=== PATIENT | female | born 1980 | race Caucasian/White ===

== ENCOUNTER 2017-03-04 19:15 | Emergency (ER) | payer OTHER ==
[~2017-03-04] VITALS: Ht 162.6 cm; Wt 79.6 kg
[2017-03-04 19:15] VITALS: TEMP 36.5; Ht 162.6 cm; Wt 79.6 kg
[2017-03-04] MEDS ORDERED: VNTHFA/IN INH (19:39)
[2017-03-04] MEDS ORDERED: RAMI5CAP PO (19:39)
[2017-03-04] MEDS ORDERED: ATOR-22 PO (19:39)
[2017-03-04 19:46] LABS: BASO % 0.1 %; BASO ABS # 0.01 K/uL (0-0.2); COMPLETE YES; HEMATOCRIT 40.3 % (37-47); IG% 0.2 %; LYMPH % 23.7 %; MEAN CELL VOLUME 80.6 fL (80-100); MEAN CORPUSCULAR HEMOGLOBIN 26.6 pg (25-34); MEAN PLATELET VOLUME 12.1 fL (7.4-10.4); MONO % 7.7 %; NEUT % 66.3 %; PLATELET COUNT 244 K/uL (130-400); WHITE BLOOD COUNT 12.23 K/uL (4.8-10.8)
--- NOTE | 2017-03-04 19:56 | DIAGNOSTIC IMAGING REPORT ---
CHEST ONE VIEW PORTABLE CLINICAL HISTORY: CHEST PAIN pain COMPARISON STUDY: No previous studies for comparison. FINDINGS: The bones soft tissues and hemidiaphragms are normal. The cardiomediastinal silhouette is normal. The lungs are clear. The pulmonary vasculature is normal. IMPRESSION: Negative chest. The above report was generated using voice recognition software. It may contain grammatical, syntax or spelling errors. Electronically signed by: Brett Prado M.D. 03/04/2017 7:55 PM Dictated Date/Time: 03/04/2017 7:55 PM
[2017-03-04 20:03] LABS: PARTIAL THROMBOPLASTIN RATIO 1.1; PROTHROMBIN TIME (PATIENT) 10.2 SECONDS (9.0-12.0)
[2017-03-04 20:04] LABS: ALT/SGPT 19 U/L (12-78); AST/SGOT 10 U/L (15-37); BLOOD UREA NITROGEN 12 mg/dl (7-18); BUN/CREATININE RATIO 17.7 (10-20); CALCIUM 8.7 mg/dl (8.5-10.1); CARBON DIOXIDE 22 mmol/L (21-32); CHLORIDE 111 mmol/L (98-107); GLUCOSE 105 mg/dl (70-99); POTASSIUM 3.6 mmol/L (3.5-5.1); SODIUM 143 mmol/L (136-145)
[2017-03-04 20:09] LABS: ALKALINE PHOSPHATASE 109 U/L (45-117)
[2017-03-04 20:22] LABS: PREG INTERNAL NEGATIVE QC NEG CLEAR BACKGROUND; PREG INTERNAL POSITIVE QC POS CONTROL LINE
--- NOTE | 2017-03-04 21:25 | EMERGENCY ROOM VISIT NOTE ---
History Report prepared by Noemi: Deb Cortés Under the Supervision of: Dr. Chris Hill D.O. First contact with patient: 19:16 Chief Complaint: CHEST PAIN Stated Complaint: CHEST PAIN History of Present Illness The patient is a 36 year old female who presents to the Emergency Room with complaints of persistent chest pain starting 0930 this morning. The patient presents to the ED by EMS. She received nitro and aspirin in route. This morning she started having chest pain while she was sitting in her home. She took a nitro which resolved the pain. Around 2 hours later, the pain started again so she took another nitro which resolved the pain. She went to work and the pain came back. Nitro was not able to resolve the chest pain at this time. She states that her current pain feels like the pain she had with her previous heart problems. She took 6-8 nitro today. She also received 1 in route. She is currently not having any pain. The last time she took nitro for chest pain was 2 weeks ago. She has never had to use this much nitro. She denies any pain or swelling in the legs. She is currently having her menstrual period which is normal timing. She had a stress test several weeks ago. She has a LAD stent in place. Her last heart catheterization was 1 year ago which found that her stent is starting to occlude. She states that she has been under increased stress recently as she moves house. She has a family history of heart disease. Her mother passed at age 51 from heart problems. Source of History: patient, EMS Onset: 929 this morning Position: chest Quality: other (pain) Timing: other (persistent) Modifying Factors (Relieving): other (nitro) Note: Pt denies pain/swelling in the legs. Review of Systems See HPI for pertinent positives & negatives. A total of 10 systems reviewed and were otherwise negative. Past Medical & Surgical Surgical Problems: (1) History of placement of stent in LAD coronary artery Family History Heart disease Social History Occupation Status: employed Current/Historical Medications Scheduled Albuterol Hfa (Ventolin Hfa), 2 PUFFS INH Q6H Atorvastatin (Lipitor), 20 MG PO HS Ramipril (Ramipril), PO BID Allergies Coded Allergies: Diphenhydramine (Unverified Allergy, Mild, ., 03/04/17) Physical Exam Vital Signs Date Time Temp Pulse Resp B/P (MAP) Pulse Ox O2 Delivery O2 Flow Rate FiO2 03/04/17 21:28 81 16 121/96 98 03/04/17 20:15 78 17 98 Room Air 03/04/17 20:01 103/83 03/04/17 19:45 82 22 99 03/04/17 19:22 70 03/04/17 19:20 116/74 03/04/17 19:15 99 Room Air 03/04/17 19:15 36.5 66 16 116/74 99 Room Air 03/04/17 19:15 Room Air 03/04/17 19:15 Room Air Physical Exam GENERAL: Patient is awake, alert, and in no acute distress. Patient is resting comfortably and showing no signs of anxiety EYES: The conjunctivae are clear. The pupils are round and reactive. EARS, NOSE, MOUTH AND THROAT: The nose is without any evidence of any deformity. Mucous membranes are moist tongue is midline NECK: The neck is nontender and supple. RESPIRATORY: Normal respiratory effort is noted there is no evidence of wheezing rhonchi or rales CARDIOVASCULAR: Regular rate and rhythm noted there no murmurs rubs or gallops normal S1 normal S2 GASTROINTESTINAL: The abdomen is soft. Bowel sounds are present in all quadrants. Abdomen is nontender MUSCULOSKELETAL/EXTREMITIES: There is no evidence of gross deformity full range of motion is noted in the hips and shoulders SKIN: There is no obvious evidence of any rash. There are no petechiae, pallor or cyanosis noted. NEUROLOGIC: Patient is awake alert and oriented x3 Medical Decision & Procedures ER Provider Diagnostic Interpretation: X-ray results as stated below per interpretation by me and the radiologist. CHEST ONE VIEW PORTABLE CLINICAL HISTORY: CHEST PAIN pain COMPARISON STUDY: No previous studies for comparison. FINDINGS: The bones soft tissues and hemidiaphragms are normal. The cardiomediastinal silhouette is normal. The lungs are clear. The pulmonary vasculature is normal. IMPRESSION: Negative chest. The above report was generated using voice recognition software. It may contain grammatical, syntax or spelling errors. Electronically signed by: Brett Prado M.D. 03/04/2017 7:55 PM Dictated Date/Time: 03/04/2017 7:55 PM Laboratory Results 03/04/17 19:30 Red Blood Count 5.00, Mean Corpuscular Volume 80.6, Mean Corpuscular Hemoglobin 26.6, Mean Corpuscular Hemoglobin Concent 33.0, Mean Platelet Volume 12.1, Neutrophils (%) (Auto) 66.3, Lymphocytes (%) (Auto) 23.7, Monocytes (%) (Auto) 7.7, Eosinophils (%) (Auto) 2.0, Basophils (%) (Auto) 0.1, Neutrophils # (Auto) 8.11, Lymphocytes # (Auto) 2.90, Monocytes # (Auto) 0.94, Eosinophils # (Auto) 0.25, Basophils # (Auto) 0.01 03/04/17 19:30 Test 03/04/17 19:30 White Blood Count 12.23 K/uL (4.8-10.8) Red Blood Count 5.00 M/uL (4.2-5.4) Hemoglobin 13.3 g/dL (12.0-16.0) Hematocrit 40.3 % (37-47) Mean Corpuscular Volume 80.6 fL (80-100) Mean Corpuscular Hemoglobin 26.6 pg (25-34) Mean Corpuscular Hemoglobin Concent 33.0 g/dl (32-36) Platelet Count 244 K/uL (130-400) Mean Platelet Volume 12.1 fL (7.4-10.4) Neutrophils (%) (Auto) 66.3 % Lymphocytes (%) (Auto) 23.7 % Monocytes (%) (Auto) 7.7 % Eosinophils (%) (Auto) 2.0 % Basophils (%) (Auto) 0.1 % Neutrophils # (Auto) 8.11 K/uL (1.4-6.5) Lymphocytes # (Auto) 2.90 K/uL (1.2-3.4) Monocytes # (Auto) 0.94 K/uL (0.11-0.59) Eosinophils # (Auto) 0.25 K/uL (0-0.5) Basophils # (Auto) 0.01 K/uL (0-0.2) RDW Standard Deviation 43.6 fL (36.4-46.3) RDW Coefficient of Variation 15.0 % (11.5-14.5) Immature Granulocyte % (Auto) 0.2 % Immature Granulocyte # (Auto) 0.02 K/uL (0.00-0.02) Prothrombin Time 10.2 SECONDS (9.0-12.0) Prothromb Time International Ratio 1.0 (0.9-1.1) Activated Partial Thromboplast Time 27.3 SECONDS (21.0-31.0) Partial Thromboplastin Ratio 1.1 Anion Gap 10.0 mmol/L (3-11) Est Creatinine Clear Calc Drug Dose 111.3 ml/min Estimated GFR () 127.4 Estimated GFR (Non- 109.9 BUN/Creatinine Ratio 17.7 (10-20) Calcium Level 8.7 mg/dl (8.5-10.1) Total Bilirubin 0.2 mg/dl (0.2-1) Direct Bilirubin < 0.1 mg/dl (0-0.2) Aspartate Amino Transf (AST/SGOT) 10 U/L (15-37) Alanine Aminotransferase (ALT/SGPT) 19 U/L (12-78) Alkaline Phosphatase 109 U/L (45-117) Troponin I < 0.015 ng/ml (0-0.045) Total Protein 7.3 gm/dl (6.4-8.2) Albumin 3.6 gm/dl (3.4-5.0) Lipase 170 U/L (73-393) Human Chorionic Gonadotropin, Qual NEG (NEG) Laboratory results per my review. ECG Indication: chest pain Rate (beats per minute): 71 Rhythm: normal sinus Findings: T-wave inversion (Anterior), no ectopy, other (no acute ST segment abnormalities) Comparison ECG Date: no prior available ED Course 1915: The patient was evaluated in room B2. A complete history and physical examination were performed. 2044: I discussed the patient's case with Dr. Ross, [facility] hospitalist. The patient will be evaluated for further management. 2046: I reevaluated the patient. She is resting comfortably. I discussed the results and treatment plan with her. I recommended that she be evaluated by the hospitalist for further management. She declined and requested to leave. I discussed the risks of leaving against medical advice and she stated that she would still like to leave. She is leaving against medical advice. Medical Decision Prior records/ancillary studies reviewed. Triage Nursing notes reviewed. Additional history obtained from EMS. The patient's history was concerning for chest pain. Differential diagnosis: Etiologies such as cardiac ischemia, aortic dissection, pulmonary embolism, pneumonia, pneumothorax, musculoskeletal, infections, pericarditis, myocarditis , esophageal rupture, gastrointestinal, as well as others were entertained. The patient is a 36-year-old female who presented to the emergency department for an evaluation of chest pain. The patient has a history of angina and has coronary artery disease. She had a stent placed in the past and has a strong family history for coronary artery disease. She is already taking nitroglycerin as well as long-acting nitrates. She is pain-free at this time and took multiple doses of her sublingual nitroglycerin. She was also treated with aspirin prior to arrival. I discussed the patient's laboratory radiographic studies with her. I discussed her case with the on-call [facility] hospitalist as well as the on-call [facility] housing manager. The patient did not wish to stay in the hospital because she would not be a candidate for full admission and would rather not be an observation status. She signed out against medical advisor. She was encouraged to rest and avoid any strenuous activity. She was also encouraged to continue all medications as prescribed including her nitrates. She was also encouraged to follow-up with her housing manager tomorrow for further evaluation but return to the emergency department immediately if symptoms change worsen or the need arises. Medication Reconcilliation Current Medication List: was personally reviewed by me Blood Pressure Screening Patient's blood pressure: Normal blood pressure Blood pressure disposition: Did not require urgent referral Consults Time Called: 2034 Consulting Physician: Dr. Ross, [facility] Hospitalist Returned Call: 2044 I discussed the patient's case with him. The patient will be evaluated for further management. Impression Primary Impression: Angina pectoris Additional Impression: Chest pain Scribe Attestation The scribe's documentation has been prepared under my direction and personally reviewed by me in its entirety. I confirm that the note above accurately reflects all work, treatment, procedures, and medical decision making performed by me. Departure Information Dispostion Against Medical Advice Referrals Don Lopez D.O. Forms HOME CARE DOCUMENTATION FORM, IMPORTANT VISIT INFORMATION Patient Instructions Angina, [facility] Additional Instructions Call your housing manager in the morning to schedule a follow-up appointment. Rest and avoid any strenuous activity. Return to the emergency Department immediately if symptoms change worsen or the need arises. Continue all medications as prescribed. Problem Qualifiers Additional Impression: Chest pain Chest pain type: unspecified Qualified Codes: R07.9 - Chest pain, unspecified
[2017-03-04 21:28] VITALS: BP 121/96; PULSE 81; O2SAT 98
== END 2017-03-04 21:29 | disposition left against medical advice (07) ==
LOC: EDBD 19:15 → C.EDB 19:16
DX: I20.9 Angina pectoris, unspecified (principal); R07.9 Chest pain, unspecified; Z79.899 Other long term (current) drug therapy; Z83.3 Family history of diabetes mellitus

== ENCOUNTER 2024-10-26 19:47 | Inpatient (IN) ==
--- OUTSIDE RECORDS SUMMARY | 2024-10-26 19:53 | External Medical Summary | Summary of Care ---
Author Name Unknown Organization [facility] Address [address] [place] [address] Phone [phone] Care Team Providers Care Web Merchant Name Role Phone Unavailable Primary Care Provider Unavailabl e Reason for Visit * Reason Onset Date Comments Precert Approved 04/23/2024 Ozempic Encounter Details Date Type Department Care Team (Late st Contact Info) Description 04/23/2024 Telephone Nutrition & Weight Management, [facility] [address] [place] [id number] Rema Enciso PA-C [address] [place] [id number] Precert Approved (Ozempic) Allergies Active Allergy Reactions Criticality Noted Date Comments Diphenhydramine Hives Medium 09/09/2014 documented as of this encounter (statuses as of 05/01/2024) Medications Medication Sig Dispensed Refills Start Date End Date Status Metoprolol Succinate ER 25 MG Oral Tablet Extended Release 24 Hour (toPROL XL)Indications:Eder nary artery disease involving [place] heart without angina pectoris, unspecified vessel or lesion type Take 0.5 Tablets by mouth in the morning. 45 Tablet 3 12/25/2022 Active Aspirin EC 81 MG Oral Tablet Delayed ReleaseIndications: Coronary artery disease involving [place] heart without angina pectoris, unspecified vessel or lesion type Take 1 Tablet by mouth in the morning. 100 Tablet 3 12/25/2022 Active Atorvastatin Calcium 10 MG Oral Tablet (Lipitor)Indication s:Coronary artery disease involving [place] heart without angina pectoris, unspecified vessel or lesion type Take 1 Tablet by mouth in the morning. 90 Tablet 3 12/25/2022 Active Loratadine 10 MG Oral Tablet (Claritin)Indicatio ns:Seasonal allergies Take 1 Tablet by mouth every night at bedtime. 90 Tablet 3 12/25/2022 Active Fluticasone Propionate 50 MCG/ACT Nasal Suspension (Flonase)Indication s:Seasonal allergies Administer 1 [place] into each nostril in the morning and 1 [place] in the evening. 54 mL 3 01/19/2023 Active Pseudoephedrine HCl 30 MG Oral Tablet (Sudafed)Indication s:Seasonal allergies Take 1 Tablet by mouth 4 times a day as needed for Congestion. 30 Tablet 1 04/02/2023 Active FLUoxetine HCl 20 MG Oral Capsule (PROzac) Take 1 Capsule by mouth in the morning. 08/27/2023 Active Pen [place] 32G X 4 MM Use as directed. Use as directed with Ozempic. 2 Each 1 11/23/2023 Active Ozempic (0.25 or 0.5 MG/DOSE) 2 MG/3ML Solution Pen-injector (Semaglutide(0.25 or 0.5MG/DOS)) INJECT 0.5 MG UNDER THE SKIN ONCE A WEEK. 2 mL 2 02/05/2024 Active documented as of this encounter (statuses as of 05/01/2024) Active Problems Problem Noted Date Diagnosed Date Prediabetes 01/15/2023 Overview: Per Prediabetes protocol Coronary artery disease invo lving [place] heart without angina pectoris 12/25/2022 S/P angioplasty with stent 12/25/2022 Bipolar 1 disorder 12/25/2022 Seasonal allergies 12/25/2022 Current mild episode of sol r depressive disorder without prior episode 12/25/2022 Anxiety 12/25/2022 documented as of this encounter (statuses as of 05/01/2024) Social History Tobacco Use Types Packs/Day Years Used Date Smoking Tobacco: Every Day Cigarettes Passive Smoke Exposure: Current Smokeless Tobacco: Never Alcohol Use Standard Drinks/Week Comments Not Currently 0 (1 standard drink = 0.6 oz pur e alcohol) Utilities Answer Date Recorded Do you have trouble paying y our heating, water, or electric bill? (Adult - for ages 18 years and over) Not on file 01/22/2024 Is your family able to pay t he heat, water, or electric bill? (Household - for ages 0-17 years) Not on file 01/22/2024 Does your family have access to good internet? (Household - for ages 0-17 years) Not on file 01/22/2024 Social Connections Answer Date Recorded How often do you feel lonely or isolated from those around you? (Adult - for ages 18 years and over) Not on file 01/22/2024 Sex and Gender Information Value Date Recorded Sex Assigned at Female 08/15/2023 7:32 AM EST Gender Identity Female 08/15/2023 7:32 AM EST Sexual Orientation Straight 08/15/2023 7: 32 AM EST Job Start Date Occupation Industry Not on file Not on file Not on file documented as of this encounter Miscellaneous Notes * Telephone Encounter - Cali Ross LPN - 05/01/2024 8:38 AM EDT Left pt a detailed message, letter sent * Telephone Encounter - Cali Ross LPN - 04/30/2024 9:38 AM EDT Left message for patient to return call. * Telephone Encounter - Cali Ross LPN - 04/25/2024 10:59 AM EDT Left message for patient to return call. * Telephone Encounter - Cali Ross LPN - 04/25/2024 10:57 AM EDT ype Date User Summary Attachment Precert 04/25/2024 9:47 AM Allie Arnold OSA Please see scanned fax from insurance under theMedia Tab. - Note: Please see scanned fax from insurance under the Media Tab. Approved/Denied: approved Drug Name and Formulation: Ozempic (0.25 or 0.5 MG/DOSE) 2 MG/3ML Solution Pen- injector (Semaglutide(0.25 or 0.5MG/DOS)) How Prescribed(directions/sig): Qty and Day Supply: weekly 10/31 Did you receive insurance information from outside the chart? No, received insurance information within the chart Valid auth start date: 04/24/2024 Valid auth end date: 10/21/2024 Rx Insurance Info: [facility] [place] Reference #: Allie Arnold Medication Roof Mechanic III [facility] ([facility]) P: [phone] F: [phone] 04/25/24,9:47 AM . Type Date User Summary Attachment Precert 04/24/2024 7:07 AM Allie Arnold OSA [facility] Authorization Submission - Note: [facility] Authorization Submission Submission Information: Medication: Ozempic (0.25 or 0.5 MG/DOSE) 2 MG/3ML Solution Pen-injector (Semaglutide(0.25 or 0.5MG/DOS)) Portal used: PROMPTPA Insurance: [facility] Authorization #/Mckinnon: [id number] * Telephone Encounter - Sheela Omalley LPN - 04/23/2024 3:54 PM EDT Please Start prior authorization for Ozempic (0.25 or 0.5 MG/DOSE) 2 MG/3ML Solution Pen-injector (Semaglutide(0.25 or 0.5MG/DOS)) Diagnosis Class 1 obesity due to excess calories in adult, unspecified BMI, unspecified whether serious comorbidity present [E66.09] Patient qualifies for Weight loss medication due to BMI >30 or BMI >27 with obesity related comorbidity BMI Readings from Last 2 Encounters: 01/31/24 29.52 kg/m 08/28/23 33.99 kg/m Wt Readings from Last 2 Encounters: 01/31/24 78 kg (172 lb) 08/28/23 89.8 kg (198 lb) Rema Enciso PA-C documented in this encounter Plan of Treatment Health Maintenance Due Date Last Done Comments DISCUSS TOBACCO CESSATION (REFER TO SMARTSET #3291) 1978 Pneumococcal Vaccine: Pediatrics (0 to 5 Years) and At-Risk Patients (6 to 64 Years) (1 of 2 - PCV) 1984 Depression Monitoring 1990 HIV Screening 1993 Hepatitis C Screening 1996 Hepatitis B Vaccine (1 of 3 - 19+ 3-dose series) 1997 Pap Smear 1999 Cervical Cancer Screening 2008 HPV/Co-Test 2008 Mammogram 2018 Cologuard 2023 Colonoscopy 2023 Colorectal Cancer Screening 2023 Fecal Occult Blood Test 2023 Sigmoidoscopy 2023 HbA1c 12/26/2023 12/25/2022 COVID-19 Vaccine (1 - 2023-2 5 season) 2024 Influenza Vaccine (FLU shot) (#1) 2024 06/25/2020, 08/28/2019 DTap/Tdap Vaccines (2 - Td o r Tdap) 06/26/2032 06/26/2022 HPV (Gardasil) Vaccine Aged Out No lo nger eligible based on patient's age to complete this topic MENINGOCOCCAL (MENACTRA/MENVEO) Aged Out No longer eligible b ased on patient's age to complete this topic documented as of this encounter Medical Devices Not on filedocumented as of this encounter
--- OUTSIDE RECORDS SUMMARY | 2024-10-26 19:53 | External Medical Summary | Summary of Care ---
Author Name Unknown Organization [facility] Address [address] [place] [address] Phone [phone] Care Team Providers Care Delphi Programmer Name Role Phone Unavailable Primary Care Provider Unavailabl e Reason for Visit * Reason Onset Date Comments Precert Approved 04/23/2024 Ozempic Encounter Details Date Type Department Care Team (Late st Contact Info) Description 04/23/2024 Telephone Nutrition & Weight Management, [facility] [address] [place] [address] Rema Enciso PA-C [address] [place] [id number] Precert Approved (Ozempic) Allergies Active Allergy Reactions Criticality Noted Date Comments Diphenhydramine Hives Medium 09/09/2014 documented as of this encounter (statuses as of 04/30/2024) Medications Medication Sig Dispensed Refills Start Date End Date Status Metoprolol Succinate ER 25 MG Oral Tablet Extended Release 24 Hour (toPROL XL)Indications:Eder nary artery disease involving [place] heart without angina pectoris, unspecified vessel or lesion type Take 0.5 Tablets by mouth in the morning. 45 Tablet 3 12/25/2022 Active Aspirin EC 81 MG Oral Tablet Delayed ReleaseIndications: Coronary artery disease involving [place] heart without angina pectoris, unspecified vessel or lesion type Take 1 Tablet by mouth in the morning. 100 Tablet 3 12/25/2022 Active Atorvastatin Calcium 10 MG Oral Tablet (Lipitor)Indication s:Coronary artery disease involving [place] heart without angina pectoris, unspecified vessel or lesion type Take 1 Tablet by mouth in the morning. 90 Tablet 3 12/25/2022 Active Loratadine 10 MG Oral Tablet (Claritin)Indicatio ns:Seasonal allergies Take 1 Tablet by mouth every night at bedtime. 90 Tablet 3 12/25/2022 Active Fluticasone Propionate 50 MCG/ACT Nasal Suspension (Flonase)Indication s:Seasonal allergies Administer 1 [place] into each nostril in the morning and 1 [place] in the evening. 54 mL 3 01/19/2023 Active Pseudoephedrine HCl 30 MG Oral Tablet (Sudafed)Indication s:Seasonal allergies Take 1 Tablet by mouth 4 times a day as needed for Congestion. 30 Tablet 1 04/02/2023 Active FLUoxetine HCl 20 MG Oral Capsule (PROzac) Take 1 Capsule by mouth in the morning. 08/27/2023 Active Pen [place] 32G X 4 MM Use as directed. Use as directed with Ozempic. 2 Each 1 11/23/2023 Active Ozempic (0.25 or 0.5 MG/DOSE) 2 MG/3ML Solution Pen-injector (Semaglutide(0.25 or 0.5MG/DOS)) INJECT 0.5 MG UNDER THE SKIN ONCE A WEEK. 2 mL 2 02/05/2024 Active documented as of this encounter (statuses as of 04/30/2024) Active Problems Problem Noted Date Diagnosed Date Prediabetes 01/15/2023 Overview: Per Prediabetes protocol Coronary artery disease invo lving [place] heart without angina pectoris 12/25/2022 S/P angioplasty with stent 12/25/2022 Bipolar 1 disorder 12/25/2022 Seasonal allergies 12/25/2022 Current mild episode of sol r depressive disorder without prior episode 12/25/2022 Anxiety 12/25/2022 documented as of this encounter (statuses as of 04/30/2024) Social History Tobacco Use Types Packs/Day Years [...] auth end date: 10/21/2024 Rx Insurance Info: [facility] [place] Reference #: Allie Arnold Medication Acls Nurse III [facility] ([facility]) P: [phone] F: [phone] 04/25/24,9:47 AM . Type Date User Summary Attachment Precert 04/24/2024 7:07 AM Allie Arnold OSA [facility] Authorization Submission - Note: [facility] Authorization Submission Submission Information: Medication: Ozempic (0.25 or 0.5 MG/DOSE) 2 MG/3ML Solution Pen-injector (Semaglutide(0.25 or 0.5MG/DOS)) Portal used: PROMPTPA Insurance: [facility] Authorization #/Mckinnon: [id number] * Telephone Encounter - Sheela Omalley LPN [...] Comments DISCUSS TOBACCO CESSATION (REFER TO SMARTSET #[id number]) 1978 Pneumococcal Vaccine: Pediatrics (0 to 5 [...]
--- OUTSIDE RECORDS SUMMARY | 2024-10-26 19:53 | External Medical Summary | Summary of Care ---
Author Name Unknown Organization [facility] Address [address] [place] [address] Phone [phone] Care Team Providers Care Project Product Manager Name Role Phone Unavailable Primary Care Provider Unavailabl e Reason for Visit * Reason Comments eRx-Medication Refill Encounter Details Date Type Department Care Team (Late st Contact Info) Description 05/20/2024 Refill Nutrition & Weight Management, [facility] [address] [place] [id number] Rema Enciso PA-C [address] [place] [address] Allergies Active Allergy Reactions Criticality Noted Date Comments Diphenhydramine Hives Medium 09/09/2014 documented as of this encounter (statuses as of 06/16/2024) Medications Metoprolol Succinate ER 25 MG Oral Tablet Extended Release 24 Hour (toPROL XL)Indications:C oronary artery disease involving zuni heart without angina pectoris, unspecified vessel or lesion type Take 0.5 Tablets by mouth in the morning. 45 Tablet 3 3 Active Aspirin EC 81 MG Oral Tablet Delayed ReleaseIndicatio ns:Coronary artery disease involving zuni heart without angina pectoris, unspecified vessel or lesion type Take 1 Tablet by mouth in the morning. 100 Tablet 3 3 Active Atorvastatin Calcium 10 MG Oral Tablet (Lipitor)Indicat ions:Coronary artery disease involving zuni heart without angina pectoris, unspecified vessel or lesion type Take 1 Tablet by mouth in the morning. 90 Tablet 3 3 Active Loratadine 10 MG Oral Tablet (Claritin)Indica tions:Seasonal allergies Take 1 Tablet by mouth every night at bedtime. 90 Tablet 3 3 Active Fluticasone Propionate 50 MCG/ACT Nasal Suspension (Flonase)Indicat ions:Seasonal allergies Administer 1 Caruthers into each nostril in the morning and 1 Caruthers in the evening. 54 mL 3 3 Active Pseudoephedrine HCl 30 MG Oral Tablet (Sudafed)Indicat ions:Seasonal allergies Take 1 Tablet by mouth 4 times a day as needed for Congestion. 30 Tablet 1 3 Active FLUoxetine HCl 20 MG Oral Capsule (PROzac) Take 1 Capsule by mouth in the morning. 4 Active Pen Poplar 32G X 4 MM Use as directed. Use as directed with Ozempic. 2 Each 1 11/29/2023 10:29 AM EDT 4 Active Ozempic (0.25 or 0.5 MG/DOSE) 2 MG/3ML Solution Pen-injector (Semaglutide(0.2 5 or 0.5MG/DOS)) INJECT 0.5 MG UNDER THE SKIN ONCE A WEEK. 2 mL 2 4 Active documented as of this encounter (statuses as of 06/16/2024) Active Problems Problem Noted Date Diagnosed Date Prediabetes 01/15/2023 Overview: Per Prediabetes protocol Coronary artery disease invo lving zuni heart without angina pectoris 12/25/2022 S/P angioplasty with stent 12/25/2022 Bipolar 1 disorder 12/25/2022 Seasonal allergies 12/25/2022 Current mild episode of sol r depressive disorder without prior episode 12/25/2022 Anxiety 12/25/2022 documented as of this encounter (statuses as of 06/16/2024) Social History Tobacco Use Types Packs/Day Years [...] years and over) Not on file 01/22/2024 Comments Unknown Sex and Gender Information Value Date Recorded Sex Assigned at Female 08/15/2023 7:32 AM EST Legal Sex Female 8:55 AM EDT Gender Identity Female 08/15/2023 7:32 AM EST Sexual Orientation Straight 08/15/2023 7: 32 AM EST documented as of this encounter Miscellaneous Notes * Telephone Encounter - Jahaira Carlisle facilities painter - 06/16/2024 1:33 PM EST PT returning call to check on PA for ozempic. Transferred to scheduling, as per message below. Thank you, Jahaira Carlisle Parcel Wrapper [facility] 06/16/2024,1:34 PM * Telephone Encounter - Rema Enciso PA-C - 06/12/2024 12:31 PM EST Refused Prescriptions: Disp Refills Ozempic (0.25 or 0.5 MG/DOSE) 2 MG/3ML Nancy* 2 Sig: INJECT 0.5 MG UNDER THE SKIN ONCE A WEEK. Refused By: CALI BERMUDEZ Reason for Refusal: Refill Not Appropriate * Telephone Encounter - Cali Bermudez LPN - 06/11/2024 1:44 PM EST Refused Prescriptions: Disp Refills Ozempic (0.25 or 0.5 MG/DOSE) 2 MG/3ML Nancy* 2 Sig: INJECT 0.5 MG UNDER THE SKIN ONCE A WEEK. Refused By: CALI BERMUDEZ Reason for Refusal: Refill Not Appropriate * Telephone Encounter - Cali Bermudez LPN - 06/11/2024 1:30 PM EST Left message for patient to return call. Letter sent * Telephone Encounter - Cali Bermudez LPN - 06/02/2024 10:57 AM EDT Left message for patient to return call. * Telephone Encounter - Cali Bermudez LPN - 05/22/2024 9:33 AM EDT Left message for patient to return call. * Telephone Encounter - Cali Bermudez LPN - 05/20/2024 12:05 PM EDT Did you pend patient's preferred pharmacy and medication before forwarding?yes Pharmacy: [id number] [id number] [facility] Pending Prescriptions: Disp Refills Ozempic (0.25 or 0.5 MG/DOSE) 2 MG/3ML So* 2 Sig: INJECT 0.5 MG UNDER THE SKIN ONCE A WEEK. Last Visit: 06/20/2023 (in office), 01/10/2024 (telemedicine) Next Visit: Visit date not found If no future appointments scheduled, and last appointment is greater than a year ago, please schedule patient for a follow-up appointment Last date the medication was ordered: 02/05/24 Is this request for a controlled substance?No Urine Drug Screen:No results found for this or any previous visit. Patient Phone Numbers Labs: Lab Results Component Value Date/Time CREAT 0.7 12/25/2022 02:45 PM POTASSIUM 4.4 12/25/2022 02:45 PM TSH 1.31 12/25/2022 02:45 PM LDL 131 (H) 12/25/2022 02:45 PM ALT 13 12/25/2022 02:45 PM HGBA1C 6.2 (H) 12/25/2022 02:45 PM documented in this encounter Plan of Treatment Upcoming Encounters Date Type Department Care Team (Late st Contact Info) Description 06/19/2024 2:00 PM EST Telemedicine Nutrition & Weight Management, [place] [address] [place] [address] Leigh Ann Dasilva, [address] [place] [address] Health Maintenance Due Date Last Done Comments DISCUSS TOBACCO CESSATION (REFER TO SMARTSET #[id number]) 1980 Pneumococcal Vaccine: Pediatrics (0 to 5 [...]
--- NOTE | 2024-10-26 20:35 | Emergency Department Note ---
Impression & Plan Overdose on Tylenol, Drug abuse, Suicide gesture, Urinary tract infection ED Provider Note NAME: IWONA SAXENA AGE: 44 SEX: F : 1980 ARRIVES VIA: Ambulance INFORMANT: Patient, ED PROVIDER(S): Chris Hill DO CHIEF COMPLAINT: Overdose HPI: The patient is a 44-year-old female who presented to the emergency department by ambulance after an overdose. The patient states that she was having suicidal ideation. She got into the garbage at a local store. She has been very vague and will not tell me exactly what she took but according to the prehospital personnel she had generic NyQuil which was a mix of DayQuil as well as NyQuil. It was generic but had all the usual medications in it. The patient may have taken between 30 and 60 tablets. I was told by prehospital that this occurred around 4 PM but the patient himself states that it happened around 6 PM. The patient had multiple episodes of nausea vomiting after this. At this time she continues to admit to suicidal ideation. ROS: See above HPI for pertinent positives & negatives. A total of 10 systems reviewed and were otherwise negative. PAST MEDICAL HISTORY: See Below PAST SURGICAL HISTORY: See Below FAMILY HISTORY: See Below SOCIAL HISTORY: See Below HOME MEDICATIONS: See Below ALLERGIES: See Below VITALS: See Below PHYSICAL EXAMINATION: GENERAL: The patient is awake and alert. She is anxious and guarded. EYES: The conjunctivae are clear. The pupils are round and reactive. EARS, NOSE, MOUTH AND THROAT: The nose is without any evidence of any deformity. NECK: The neck is nontender and supple. RESPIRATORY: Normal respiratory effort is noted there is no evidence of wheezing rhonchi or rales CARDIOVASCULAR: Regular rate and rhythm noted there no murmurs rubs or gallops normal S1 normal S2. GASTROINTESTINAL: The abdomen is soft. Abdomen is nontender. MUSCULOSKELETAL/EXTREMITIES: There is no evidence of gross deformity full range of motion is noted in the hips and shoulders. SKIN: There is no obvious evidence of any rash. There are no petechiae, pallor or cyanosis noted. NEUROLOGIC: Patient is awake alert and oriented x3 strength is symmetric patellar reflexes are 2+ bilaterally PSYCH: The patient makes poor eye contact with the evaluation. She is anxious and guarded. She is currently admitting to suicidal ideation. MEDICAL DECISION MAKING: The patient is a 44-year-old female who presented to the emergency department by ambulance for an evaluation of depression with suicidal gesturing. The patient took multiple doses of NyQuil daytime and nighttime formulations. We do not know exactly what she took and she is being very vague about the timeframe but we think it was between 4 PM and 6 PM. The patient had episodes of nausea vomiting. The patient was treated with N-acetylcysteine in the emergency department. She was also treated with IV antibiotics for presumed urinary tract infection. I discussed the patient's laboratory and radiographic studies with her. I consulted with the Poison Control [facility] about the patient's condition. Ultimately they felt that she would be a good candidate for N-acetylcysteine. [facility] They have agreed to evaluate the patient in the emergency department for further management and disposition. Triage Nursing notes reviewed. Prior medical records reviewed Vital Signs: reviewed and remarkable for elevated blood pressure and tachycardia. Differential diagnosis: Mood disorder, infection, hypoglycemia, electrolyte abnormalities, cardiac sources, intracerebral event, toxicologic, trauma, neurologic, as well as other pathologies. ER treatment provided: See below Diagnostics interpreted by me: ECG: EKG was obtained in the emergency department. My interpretation is normal sinus rhythm at 98 bpm. There was no ectopy. There was no acute ST segment abnormalities noted. QTc was 485 ms. QRS duration was 80 ms. Cardiac Monitoring: An order was placed for continuous cardiac monitoring. The monitor shows a rate of 104 bpm with sinus tachycardia. Laboratory studies: As stated above and show below. Imaging studies: See below. Radiographic imaging was reviewed by myself Consultation(s): I discussed this case with Dr. Tony who is on[facility]. I discussed this case with the Poison Control Center. ED COURSE: Procedures: none Critical Care: I have personally spent greater than 45 minutes of critical care time in the direct management of this patient. This includes bedside care, interpretation of diagnostic studies, and testing, discussion with consultants, patient, and family members, and other required patient management activities. This 45 minutes is in excess of all separately billable procedures. Past Med/Surg History Problem List (Updated 10/26/24 @ 22:10 by Chris Hill DO) Urinary tract infection (Acute) Suicide gesture (Acute) Drug abuse (Acute) Overdose on Tylenol (Acute) Vascular disease, peripheral KING (dyspnea on exertion) Coronary artery disease Medical History Tobacco use GERD (gastroesophageal reflux disease) Asthma Anxiety Depression Migraine headache Fatigue Leg pain, bilateral Carotid bruit Vitamin D deficiency Urinary tract infection Insomnia Neck pain Sleep disorder Cephalgia Dyspnea on exertion Somatic dysfunction of cervical region Cholelithiasis Abdominal pain, right upper quadrant Subclavian artery stenosis Arm pain, left Decreased radial pulse Liver cyst Upper back pain Weight gain Hyperlipidemia Thyromegaly Somatic dysfunction of thoracic region Obese Hypokalemia Lower back pain Somatic dysfunction of lumbar region Hyperglycemia Somatic dysfunction of rib Colitis Abdominal pain Occult blood in stools Leukocytosis Sore throat Cough Muscle ache Diarrhea Surgical History History of cardiac catheterization H/O section History of tubal ligation Family History Family/Other Coronary heart disease Asthma Allergies Diabetes Hypertension Migraine Social History Smoking Status: Current every day smoker Tobacco Type: Cigarettes packs per day: 0.5; Do You Dip or Chew Tobacco: No; Hx Alcohol Use: No Hx Substance Use: No Preferred Language: Bangladeshi Environmental Technical Officer Required: No Beliefs That Will Affect Care: None marital status: / Current Living Situation: Spouse and Family current occupational status: unemployed How many Children do You have: 5 Feels Safe at Home: No caffeine: Yes (5 cups of coffee per day) Seatbelt Use: always Assistive Devices: None Allergies Allergies Allergy/AdvReac Type Severity Reaction Status Date / Time diphenhydramine Allergy Mild . Verified 07/27/20 10:42 Home Meds Home Medications Medication Instructions Recorded Confirmed albuterol sulfate 90 mcg/actuation 2 puff inhalation Q4H PRN 07/12/20 07/27/20 aerosol inhaler (Ventolin HFA) Shortness Of Breath aspirin 81 mg tablet,delayed 81 mg PO DAILY 07/12/20 07/27/20 release atorvastatin 20 mg tablet 20 mg PO DAILY 07/12/20 07/27/20 carvedilol 3.125 mg tablet 3.125 mg PO BID 07/12/20 07/27/20 famotidine 40 mg tablet 40 mg PO DAILY 07/12/20 07/27/20 nitroglycerin 0.4 mg sublingual 0.4 mg sublingual Q5M PRN Chest 07/12/20 07/27/20 tablet Pain ramipril 2.5 mg capsule 2.5 mg PO BID 07/12/20 07/27/20 Previous Rx's Medication Instructions Recorded clopidogrel 75 mg tablet (Plavix) 75 mg PO DAILY #90 tabs 07/21/20 isosorbide mononitrate 30 mg 30 mg PO DAILY #90 tabs 07/27/20 tablet,extended release 24 hr Results & Data (ED) Vital Signs Vital Signs - 24 hr 10/26/24 19:37 10/26/24 19:37 10/26/24 19:37 Temperature 36.5 C 36.5 C Temperature Source Oral Oral Pulse Rate 104 H Pulse Rate [Right Brachial] 104 H Pulse Rhythm Regular Pulse Rhythm [Right Brachial] Regular Pulse Strength Normal Pulse Strength [Right Brachial] Normal Respiratory Rate 19 19 Respiratory Effort / Characteristics Non-Labored Non-Labored Respiratory Depth Normal Normal Respiratory Pattern Regular Regular Blood Pressure 178/91 H Blood Pressure [Right Arm] 178/91 H Blood Pressure Mean 120 Blood Pressure Mean [Right Arm] 120 Blood Pressure Position Lying Blood Pressure Position [Right Arm] Lying Pulse Oximetry 100 100 Oxygen Delivery Method Room Air Room Air Room Air Sepsis Recent Fever Within 48 Hours No Sepsis New/Unexplained Change in Mental Status N/A Sepsis Action Taken by Nursing No Action Required 10/26/24 20:01 Temperature Temperature Source Pulse Rate Pulse Rate [Right Brachial] Pulse Rhythm Pulse Rhythm [Right Brachial] Pulse Strength Pulse Strength [Right Brachial] Respiratory Rate Respiratory Effort / Characteristics Respiratory Depth Respiratory Pattern Blood Pressure Blood Pressure [Right Arm] Blood Pressure Mean Blood Pressure Mean [Right Arm] Blood Pressure Position Blood Pressure Position [Right Arm] Pulse Oximetry 100 Oxygen Delivery Method Room Air Sepsis Recent Fever Within 48 Hours Sepsis New/Unexplained Change in Mental Status Sepsis Action Taken by Jail Medications Current Medication List: was personally reviewed by me Laboratory Data Attestation: I reviewed the patient's lab results. 10/26/24 20:10 10/26/24 20:10 Lab Results 10/26/24 10/26/24 Range/Units 20:00 20:10 WBC 17.21 H (4.8-10.8) K/ul RBC 5.53 H (4.20-5.40) M/uL Hgb 12.7 (12.0-16.0) g/dl Hct 40.8 (37.0-47.0) % MCV 73.8 L (80.0-100.0) fL MCH 23.0 L (25.0-34.0) pg MCHC 31.1 L (32.0-36.0) g/dL RDW Std Deviation 43.5 (36.4-46.3) fL RDW Coeff of Donna 16.4 H (11.5-14.5) % Plt Count 475 H (130-400) K/uL MPV 11.3 (9.4-12.4) fL Immature Gran % (Auto) 0.5 % Neut % (Auto) 77.4 % Lymph % (Auto) 15.3 % [place] % (Auto) 5.6 % Eos % (Auto) 0.9 % Baso % (Auto) 0.3 % Neut # (Auto) 13.32 H (1.40-6.50) K/uL Lymph # (Auto) 2.63 (1.20-3.40) K/uL [place] # (Auto) 0.97 H (0.11-0.59) K/uL Eos # (Auto) 0.15 (0.00-0.50) K/uL Baso # (Auto) 0.06 (0.00-0.20) K/uL Immature Gran # (Auto) 0.08 (0.01-0.20) K/uL PT 10.3 (9.0-12.0) Seconds INR 0.9 (0.9-1.1) APTT 24 (21-31) Seconds PTT Ratio 0.9 Sodium 140 (136-145) mmol/L Potassium 3.8 (3.5-5.1) mmol/L Chloride 106 (98-107) mmol/L Carbon Dioxide 26 (21-32) mmol/L Anion Gap 8 (3-11) BUN 8 (6-23) mg/dl Creatinine 0.81 (0.6-1.2) mg/dl Est Cr Clr Drug Dosing 85.0 ml/min eGFR 90.61 BUN/Creatinine Ratio 9.9 L (10-20) Glucose 135 H (70-99(Fasting)) mg/dl Calcium 9.3 (8.6-10.3) mg/dl Magnesium 1.9 (1.7-2.4) mg/dl Total Bilirubin 0.3 (0.2-1.0) mg/dl AST 15 (13-39) U/L ALT 12 (7-52) U/L Alkaline Phosphatase 121 H (34-104) U/L Total Creatine Kinase 81 (26-192) U/L Troponin I High Sens 5.5 (0-14) pg/ml Total Protein 8.1 (6.0-8.3) gm/dl Albumin 4.3 (3.4-5.0) gm/dl Globulin 3.8 (2.5-4.0) gm/dl Albumin/Globulin Ratio 1.1 (0.9-2) Lipase 24 (11-82) U/L HCG, Qual Negative (Negative) Urine Color Yellow Urine Appearance Cloudy A (Clear) Urine pH 5.0 (4.5-7.5) Ur Specific [place] > 1.045 H (1.000-1.030) Urine Protein 2+ H (Negative) Urine Glucose (UA) Negative (Negative) Urine Ketones Trace H (Negative) Urine Blood 3+ H (Negative) Urine Nitrite Positive A (Negative) Urine Bilirubin Negative (Negative) Urine Urobilinogen Negative (Negative) Ur Leukocyte Esterase Trace H (Negative) Urine WBC (Auto) 11-20 H (0-5) /hpf Urine RBC (Auto) >20 H (0-2) /hpf U Hyaline Cast (Auto) 3-5 H (0-2) /lpf U Epithel Cells (Auto) 6-10 H (0-2) /hpf Urine Bacteria (Auto) 4+ H (None Seen) Salicylates < 3.0 L (3.0-30) mg/dl Urine Opiates Screen Pos H (Neg) Ur Methadone, Qual Neg (Neg) Urine Fentanyl Screen Pos H (Neg) Acetaminophen 94 H (10-30) ug/ml Urine Barbiturates Neg (Neg) Ur Phencyclidine (PCP) Neg (Neg) U Amphetamin/Meth Scrn Pos H (Neg) MDMA (Ecstasy) Screen Pos H (Neg) U Benzodiazepines Scrn Neg (Neg) Ur Cocaine Metabolite Neg (Neg) U Marijuana (THC) Screen Pos H (Neg) Ethyl Alcohol mg/dL < 10.0 (<10.0) mg/dl SARS-CoV-2, RNA, NAAT NEGATIVE (NEGATIVE) Imaging Data Attestation: I personally reviewed and interpreted this imaging study as follows: My Impression: 1 view chest x-ray was obtained in the emergency department. My interpretation is no free air or definite infiltrate, final report pending Discharge Plan Visit Data Chief Complaint: Overdose (Intentional) Stated Complaint: ALTERED, OVERDOSE, ED Provider: Chris Hill Discharge Problem: Overdose on Tylenol, Drug abuse, Suicide gesture, Urinary tract infection Patient Disposition: Being Evaluated by Hospitalist Forms Stand Alone Forms: My [facility], Suicide Prevention Resources Prescriptions Prescriptions: No Action isosorbide mononitrate 30 mg tablet extended release 24 hr 30 mg PO DAILY Qty: 90 3RF nitroglycerin 0.4 mg tablet, sublingual 0.4 mg sublingual Q5M PRN (Reason: Chest Pain) Rx Instructions: do not exceed 3 doses per episode famotidine 40 mg tablet 40 mg PO DAILY aspirin 81 mg tablet,delayed release (DR/EC) 81 mg PO DAILY albuterol sulfate [Ventolin HFA] 90 mcg/actuation HFA aerosol inhaler 2 puff inhalation Q4H PRN (Reason: Shortness Of Breath) ramipril 2.5 mg capsule 2.5 mg PO BID carvedilol 3.125 mg tablet 3.125 mg PO BID Rx Instructions: must administer with a meal/food atorvastatin 20 mg tablet 20 mg PO DAILY clopidogrel [Plavix] 75 mg tablet 75 mg PO DAILY Qty: 90 3RF Referrals Referrals: Don Lopez DO [Primary Care Provider] -
[2024-10-26 20:49] LABS: Pregnancy Test, Serum Negative (Negative)
[2024-10-26 20:51] LABS: Albumin Globulin Ratio 1.1 (0.9-2); Albumin Level 4.3 gm/dl (3.4-5.0); BUN Creatinine Ratio 9.9 (10-20); Bilirubin,Total 0.3 mg/dl (0.2-1.0); Calcium 9.3 mg/dl (8.6-10.3); Globulin 3.8 gm/dl (2.5-4.0); Magnesium 1.9 mg/dl (1.7-2.4); Potassium 3.8 mmol/L (3.5-5.1); Total Protein 8.1 gm/dl (6.0-8.3)
[2024-10-26 20:55] LABS: Appearance Urine Cloudy (Clear); Bacteria Urine Automated 4+ (None Seen); Bilirubin Urine Negative (Negative); Blood Urine 3+ (Negative); Color Urine Yellow; Glucose Urine UA Negative (Negative); Ketones Urine Trace (Negative); Leukocyte Esterase Urine Trace (Negative); Nitrite Urine Positive (Negative); Protein Urine 2+ (Negative); RBC Urine Automated >20 /hpf (0-2); Specific Gravity Urine > 1.045 (1.000-1.030); Urobilinogen Urine Negative (Negative)
[2024-10-26 20:57] LABS: Troponin I High Sensitivity 5.5 pg/ml (0-14)
[2024-10-26 21:05] LABS: Acetaminophen 94 ug/ml (10-30); Salicylate < 3.0 mg/dl (3.0-30)
[2024-10-26 21:07] LABS: Amphetamines+Metham, Urine Pos (Neg); Barbiturates, Urine Neg (Neg); Benzodiazepine, Urine Neg (Neg); Cocaine, Urine Neg (Neg); Fentanyl, Urine Pos (Neg); MDMA (Ecstacy), Urine Pos (Neg); Marijuana, Urine Pos (Neg); Methadone, Urine Neg (Neg); Opiate, Urine Pos (Neg); Phencyclidine, Urine Neg (Neg)
[2024-10-26 21:10] LABS: Basophils # (auto) 0.06 K/uL (0.00-0.20); Basophils % (auto) 0.3 %; Eosinophils # (auto) 0.15 K/uL (0.00-0.50); Eosinophils % (auto) 0.9 %; Hematocrit (blood only) 40.8 % (37.0-47.0); Hemoglobin 12.7 g/dl (12.0-16.0); Immature Granulocytes # (auto) 0.08 K/uL (0.01-0.20); Immature Granulocytes % (auto) 0.5 %; Lymphocytes # (auto) 2.63 K/uL (1.20-3.40); Lymphocytes % (auto) 15.3 %; Mean Corpuscular Hgb Conc 31.1 g/dL (32.0-36.0); Mean Corpuscular Volume 73.8 fL (80.0-100.0); Mean Platelet Volume 11.3 fL (9.4-12.4); Monocytes # (auto) 0.97 K/uL (0.11-0.59); Monocytes % (auto) 5.6 %; Neutrophils # (auto) 13.32 K/uL (1.40-6.50); Neutrophils % (auto) 77.4 %; Platelet Count 475 K/uL (130-400); RDW Coefficient of Variation 16.4 % (11.5-14.5); RDW Standard Deviation 43.5 fL (36.4-46.3); Red Blood Count 5.53 M/uL (4.20-5.40); White Blood Count 17.21 K/ul (4.8-10.8)
[2024-10-26 21:19] LABS: INR 0.9 (0.9-1.1); Partial Thromboplastin Ratio 0.9; Partial Thromboplastin Time 24 Seconds (21-31); Prothrombin Time 10.3 Seconds (9.0-12.0)
[2024-10-26] MEDS: cefTRIAXone SODIUM 2,000 MG/50 ML BAG IV STA (22:16)
--- NOTE | 2024-10-26 22:26 | History & Physical Report ---
Date of Service October 26, 2024 Assessment & Plan (1) Suicide gesture: (2) Urinary tract infection: (3) Coronary artery disease: (4) Anxiety: Plan 44-year-old female with history of anxiety/depression, coronary artery disease presenting with intentional overdose. Patient ingested an undisclosed amount of NyQuil/DayQuil tablets around 1700 this evening. Denies coingestions or intake of alcohol. On physical exam patient is tachycardic and hypertensive. She is somnolent but arousable and able to answer questions and follow commands. Labs are significant for leukocytosis and elevated platelet count as well as microcytosis with normal hemoglobin and hematocrit Mild elevation of alkaline phosphatase = 121, UA suggestive of infection, urinary toxicology screen positive for opiates, fentanyl, amphetamine/methamphetamines, ecstasy and marijuana as well as an elevated acetaminophen level of 94. #Suicidal gestureintentional overdose on NyQuil and DayQuil. These medications typically contain acetaminophen, dextromethorphan as well as doxylamine (antihistamine) and phenylephrine. Admit to PCU for continuous cardiac monitoring Maintain suicide precautions, one-to-one observation Bladder scan and straight cath as needed, monitor for urinary retention given anticholinergic elements of her overdose Continue N-acetylcysteine per protocol Lactated Ringer's at 100 mL/h x 2 L Repeat CBC, LFTs and Tylenol level in the morning Psychiatry consult in the morning #Urinary tract infectionUA suggestive of infection. Patient is afebrile. Elevated heart rate likely secondary to overdose rather than sepsis. Ceftriaxone 1 g IV daily Continue gentle IV fluids #Coronary artery diseasepatient with history of coronary artery disease. She had LAD stent in 2014 in the setting of an acute [place]. She also had stenting of her ostial/proximal right PDA due to progressive dyspnea on exertion. Patient followed with cardiology in the past. Last visit 07/26/2020. At that time she was on dual antiplatelet therapy due to recent stent placement as well as beta-aneesh, KARL inhibitor, statin and Imdur for angina. Patient reports that she is not taking any of her medications. Patient denies chest pain. EKG is nonischemic. Troponin Will resume aspirin 81 mg p.o. daily, atorvastatin 20 mg p.o. daily, carvedilol 3.125 mg p.o. twice daily and ramipril 2.5 mg p.o. twice daily #Anxietypatient may benefit from SSRI management, further evaluation for possib le bipolar disorder as self-reported. Psychiatry consultation appreciated F/E/N -lactated Ringer's at 100 mL/h x 2 L, electrolytes within normal limits, heart healthy diet with safe tray as tolerated Prophylaxisencourage ambulation, low risk for DVT Codefull per discussion with patient at time of admission Dispoadmit to PCU History of Present Illness Chief Complaint: Intentional overdose Primary Care Provider: Don Lopez DO Wanda Marroquin Is a 44-year-old female with history of anxiety/depression, self-reported bipolar disorder, coronary artery disease with stent in place, GERD and ongoing tobacco use presenting with intentional overdose. Patient is able to answer questions appropriately but does provide limited history at this time. She reports that she had a fight with her boyfriend today and is just "fed up with stuff". She took "lots of boxes" of NyQuil and DayQuil. The ingestion took place at around 1700 hrs. EMS was called. Estimated that patient took anywhere from 30-60 DayQuil/NyQuil tablets. She denies coingestion with other agents or alcohol. She comments that she she has severe anxiety as well as bipolar disorder. She is currently not taking any medications for these conditions. She does not follow with psychiatry. She has taken buspirone in the past but reports she has never been on an SSRI (Citalopram however is in her past medical records). She has had intentional overdose in the past. Reports a 2 to 3 years ago she took an overdose of prescription medications. Patient denies chest pain, shortness of breath, abdominal pain, nausea, vomiting, diarrhea or constipation. Denies fever at this time. In the ER she is afebrile, tachycardic and hypertensive (heart rate = 104, BP = 178/91), adequate oxygenation on room air. Poison control was contacted. Recommended the patient began on N- acetylcysteine protocol ER Course: Ceftriaxone 2 g IV N-acetylcysteine Allergies Allergy/AdvReac Type Severity Reaction Status Date / Time diphenhydramine Allergy Mild . Verified 07/27/20 10:42 Past Med/Surg History Problem List Urinary tract infection (Acute) Suicide gesture (Acute) Drug abuse (Acute) Overdose on Tylenol (Acute) Vascular disease, peripheral KING (dyspnea on exertion) Coronary artery disease Medical History Tobacco use GERD (gastroesophageal reflux disease) Asthma Anxiety Depression Migraine headache Fatigue Leg pain, bilateral Carotid bruit Vitamin D deficiency Urinary tract infection Insomnia Neck pain Sleep disorder Cephalgia Dyspnea on exertion Somatic dysfunction of cervical region Cholelithiasis Abdominal pain, right upper quadrant Subclavian artery stenosis Arm pain, left Decreased radial pulse Liver cyst Upper back pain Weight gain Hyperlipidemia Thyromegaly Somatic dysfunction of thoracic region Obese Hypokalemia Lower back pain Somatic dysfunction of lumbar region Hyperglycemia Somatic dysfunction of rib Colitis Abdominal pain Occult blood in stools Leukocytosis Sore throat Cough Muscle ache Diarrhea Surgical History History of cardiac catheterization H/O section History of tubal ligation Family History Family/Other Coronary heart disease Asthma Allergies Diabetes Hypertension Migraine Social History Smoking Status: Current every day smoker Tobacco Type: Cigarettes packs per day: 0.5; Do You Dip or Chew Tobacco: No; Hx Alcohol Use: No Hx Substance Use: No Preferred Language: Korean Bible Worker Required: No Beliefs That Will Affect Care: None marital status: / Current Living Situation: Spouse and Family current occupational status: unemployed How many Children do You have: 5 Feels Safe at Home: No caffeine: Yes (5 cups of coffee per day) Seatbelt Use: always Assistive Devices: None Review of Systems Review of Systems: All systems reviewed & are unremarkable except as noted in HPI & below Physical Exam Physical Exam: General: patient resting comfortably, NAD, non-toxic in appearance, AA&O x 4 Skin: warm, dry, intact, no rashes or lesions HEENT: NC/AT, PERRL, EOMI, anicteric sclera, conjunctiva without injection, external ear normal to inspection and nontender, nares patent, dry mucus membranes, dentition intact, no oropharyngeal lesions, neck supple, trachea midline, no LAD, no thyromegaly, no JVD Heart: +S1/S2, regular, tachycardic, no m/r/g Lungs: equal air entry bilaterally, no rales/rhonchi/wheezes Abd: +BS, soft, NT/ND, no masses/organomegaly/ascites Ext: warm, 2+ pulses in UE/LE bilaterally, no clubbing/cyanosis or edema Neuro: nonfocal, patient AA&O x 4, speech intact, no facial droop, moving all extremities on command with equal strength 5/5 Results & Data Results & Data Vital Signs (Past 12 Hours) Vital Signs Temp Pulse Pulse Resp BP BP Pulse Ox 10/26/24 20:01 100 10/26/24 19:37 36.5 C 104 H 19 178 H 100 10/26/24 19:37 10/26/24 19:37 36.5 C 104 H 19 178 H 100 O2 Del Method 10/26/24 20:01 Room Air 10/26/24 19:37 Room Air 10/26/24 19:37 Room Air 10/26/24 19:37 Room Air Laboratory Results Laboratory Results WBC 17.21 K/ul (4.8-10.8) H 10/26/24 20:10 RBC 5.53 M/uL (4.20-5.40) H 10/26/24 20:10 Hgb 12.7 g/dl (12.0-16.0) 10/26/24 20:10 Hct 40.8 % (37.0-47.0) 10/26/24 20:10 MCV 73.8 fL (80.0-100.0) L 10/26/24 20:10 MCH 23.0 pg (25.0-34.0) L 10/26/24 20:10 MCHC 31.1 g/dL (32.0-36.0) L 10/26/24 20:10 RDW Std Deviation 43.5 fL (36.4-46.3) 10/26/24 20:10 RDW Coeff of Donna 16.4 % (11.5-14.5) H 10/26/24 20:10 Plt Count 475 K/uL (130-400) H 10/26/24 20:10 MPV 11.3 fL (9.4-12.4) 10/26/24 20:10 Immature Gran % (Auto) 0.5 % 10/26/24 20:10 Neut % (Auto) 77.4 % 10/26/24 20:10 Lymph % (Auto) 15.3 % 10/26/24 20:10 [place] % (Auto) 5.6 % 10/26/24 20:10 Eos % (Auto) 0.9 % 10/26/24 20:10 Baso % (Auto) 0.3 % 10/26/24 20:10 Neut # (Auto) 13.32 K/uL (1.40-6.50) H 10/26/24 20:10 Lymph # (Auto) 2.63 K/uL (1.20-3.40) 10/26/24 20:10 [place] # (Auto) 0.97 K/uL (0.11-0.59) H 10/26/24 20:10 Eos # (Auto) 0.15 K/uL (0.00-0.50) 10/26/24 20:10 Baso # (Auto) 0.06 K/uL (0.00-0.20) 10/26/24 20:10 Immature Gran # (Auto) 0.08 K/uL (0.01-0.20) 10/26/24 20:10 PT 10.3 Seconds (9.0-12.0) 10/26/24 20:10 INR 0.9 (0.9-1.1) 10/26/24 20:10 APTT 24 Seconds (21-31) 10/26/24 20:10 PTT Ratio 0.9 10/26/24 20:10 Sodium 140 mmol/L (136-145) 10/26/24 20:10 Potassium 3.8 mmol/L (3.5-5.1) 10/26/24 20:10 Chloride 106 mmol/L (98-107) 10/26/24 20:10 Carbon Dioxide 26 mmol/L (21-32) 10/26/24 20:10 Anion Gap 8 (3-11) 10/26/24 20:10 BUN 8 mg/dl (6-23) 10/26/24 20:10 Creatinine 0.81 mg/dl (0.6-1.2) 10/26/24 20:10 Est Cr Clr Drug Dosing 85.0 ml/min 10/26/24 20:10 eGFR 90.61 10/26/24 20:10 BUN/Creatinine Ratio 9.9 (10-20) L 10/26/24 20:10 Glucose 135 mg/dl (70-99(Fasting)) H 10/26/24 20:10 Calcium 9.3 mg/dl (8.6-10.3) 10/26/24 20:10 Magnesium 1.9 mg/dl (1.7-2.4) 10/26/24 20:10 Total Bilirubin 0.3 mg/dl (0.2-1.0) 10/26/24 20:10 AST 15 U/L (13-39) 10/26/24 20:10 ALT 12 U/L (7-52) 10/26/24 20:10 Alkaline Phosphatase 121 U/L (34-104) H 10/26/24 20:10 Total Creatine Kinase 81 U/L (26-192) 10/26/24 20:10 Troponin I High Sens 5.5 pg/ml (0-14) 10/26/24 20:10 Total Protein 8.1 gm/dl (6.0-8.3) 10/26/24 20:10 Albumin 4.3 gm/dl (3.4-5.0) 10/26/24 20:10 Globulin 3.8 gm/dl (2.5-4.0) 10/26/24 20:10 Albumin/Globulin Ratio 1.1 (0.9-2) 10/26/24 20:10 Lipase 24 U/L (11-82) 10/26/24 20:10 HCG, Qual Negative (Negative) 10/26/24 20:10 Urine Color Yellow 10/26/24 20:00 Urine Appearance Cloudy (Clear) A 10/26/24 20:00 Urine pH 5.0 (4.5-7.5) 10/26/24 20:00 Ur Specific [place] > 1.045 (1.000-1.030) H 10/26/24 20:00 Urine Protein 2+ (Negative) H 10/26/24 20:00 Urine Glucose (UA) Negative (Negative) 10/26/24 20:00 Urine Ketones Trace (Negative) H 10/26/24 20:00 Urine Blood 3+ (Negative) H 03/23/25 20:00 Urine Nitrite Positive (Negative) A 10/26/24 20:00 Urine Bilirubin Negative (Negative) 10/26/24 20:00 Urine Urobilinogen Negative (Negative) 10/26/24 20:00 Ur Leukocyte Esterase Trace (Negative) H 10/26/24 20:00 Urine WBC (Auto) 11-20 /hpf (0-5) H 10/26/24 20:00 Urine RBC (Auto) >20 /hpf (0-2) H 10/26/24 20:00 U Hyaline Cast (Auto) 3-5 /lpf (0-2) H 10/26/24 20:00 U Epithel Cells (Auto) 6-10 /hpf (0-2) H 10/26/24 20:00 Urine Bacteria (Auto) 4+ (None Seen) H 10/26/24 20:00 Salicylates < 3.0 mg/dl (3.0-30) L 10/26/24 20:10 Urine Opiates Screen Pos (Neg) H 10/26/24 20:00 Ur Methadone, Qual Neg (Neg) 10/26/24 20:00 Urine Fentanyl Screen Pos (Neg) H 10/26/24 20:00 Acetaminophen 94 ug/ml (10-30) H 10/26/24 20:10 Urine Barbiturates Neg (Neg) 10/26/24 20:00 Ur Phencyclidine (PCP) Neg (Neg) 10/26/24 20:00 U Amphetamin/Meth Scrn Pos (Neg) H 10/26/24 20:00 MDMA (Ecstasy) Screen Pos (Neg) H 10/26/24 20:00 U Benzodiazepines Scrn Neg (Neg) 10/26/24 20:00 Ur Cocaine Metabolite Neg (Neg) 10/26/24 20:00 U Marijuana (THC) Screen Pos (Neg) H 10/26/24 20:00 Ethyl Alcohol mg/dL < 10.0 mg/dl (<10.0) 10/26/24 20:10 SARS-CoV-2, RNA, NAAT NEGATIVE (NEGATIVE) 10/26/24 20:00 ECG Additional Comments: EKG per my independent interpretation reveals normal sinus rhythm at 90 bpm, MN = 136, QRS = 80, QTc mildly prolonged at 485, no acute ischemic changes, some nonspecific ST changes present in the anterior leads PG Care Time/CCT Total # of Minutes Spent Total Time Spent with Patient: Total time spent is greater than 50% in coordination of care (as documented) at patient's floor/unit and/or counseling patient: Coding Level of Care Code 56062 INT INP/OBS CARE 3/75MIN Diagnoses Suicide gesture X83.8XXA Urinary tract infection N39.0 Coronary artery disease I25.10 Anxiety F41.9
[2024-10-26] MEDS: STAT IV/IM STA (22:44)
[2024-10-26] MEDS: AcetylCYSTEINE IV 21 HR REGIMEN (>40KG) IV STA (22:44)
[2024-10-26] MEDS: DEXTROSE 5% IV ONE (22:51)
[2024-10-26] MEDS: ACETYLCYSTEINE IV ONE (22:51)
[2024-10-26 23:05] LABS: Base Excess VBG 0.7 mEq/L; HCO3 VBG 25 mmol/L; Oxygen Saturation VBG 92.9 %; PCO2 VBG 40 mmHg (38-50); PO2 VBG 63 mmHg; pH VBG 7.41 (7.36-7.41)
--- NOTE | 2024-10-26 23:47 | XRay Report ---
Exam(s): XR CXR 1 VIEW EXAM: XR Chest, 1 View CLINICAL HISTORY: Reason for exam: OD. TECHNIQUE: Frontal view of the chest. COMPARISON: 03/04/2017 FINDINGS: Lungs: Unremarkable. No consolidation. Pleural space: Unremarkable. No pneumothorax. Heart: Unremarkable. No cardiomegaly. Mediastinum: Unremarkable. Normal mediastinal contour. Bones/joints: Unremarkable. No acute fracture. IMPRESSION: No acute cardiopulmonary abnormality. Electronically signed by: Ke Uribe MD 10/26/24 23:46 PM
[2024-10-27] MEDS: LACTATED RINGER'S 1,000 ML IV SCH (00:16)
[2024-10-27] MEDS: NICOTINE 21 MG/24 HR TDSY TD SCH (00:21)
[2024-10-27] MEDS ORDERED: Nursing to Pharmacy Communication STA (02:26)
[2024-10-27 05:01] LABS: Hematocrit (blood only) 35.5 % (37.0-47.0); Hemoglobin 11.1 g/dl (12.0-16.0); Mean Corpuscular Hemoglobin 22.8 pg (25.0-34.0); Mean Corpuscular Hgb Conc 31.3 g/dL (32.0-36.0); Mean Corpuscular Volume 72.9 fL (80.0-100.0); Mean Platelet Volume 10.3 fL (9.4-12.4); Platelet Count 394 K/uL (130-400); RDW Coefficient of Variation 16.3 % (11.5-14.5); RDW Standard Deviation 42.6 fL (36.4-46.3); Red Blood Count 4.87 M/uL (4.20-5.40); White Blood Count 15.41 K/ul (4.8-10.8)
[2024-10-27 05:17] LABS: Albumin Globulin Ratio 1.3 (0.9-2); Albumin Level 3.6 gm/dl (3.4-5.0); BUN Creatinine Ratio 11.5 (10-20); Bilirubin,Total 0.4 mg/dl (0.2-1.0); Calcium 8.2 mg/dl (8.6-10.3); Creatinine Clr Calc Pharmacy 112.8 ml/min; Globulin 2.8 gm/dl (2.5-4.0); Potassium 3.6 mmol/L (3.5-5.1); Total Protein 6.4 gm/dl (6.0-8.3)
[2024-10-27] MEDS: ATORVASTATIN 20 MG TAB PO SCH (08:50)
[2024-10-27] MEDS: ENALAPRIL MALEATE 5 MG TAB PO SCH (08:50)
[2024-10-27] MEDS: carvediloL 3.125 MG TAB PO SCH (08:50)
[2024-10-27] MEDS: ASPIRIN 81 MG ECTAB PO SCH (08:51)
--- NOTE | 2024-10-27 09:43 | Hospitalist Progress Note ---
Date of Service October 27, 2024 Assessment & Plan (1) Suicide gesture: (2) Urinary tract infection: (3) Coronary artery disease: (4) Anxiety: Plan 44-year-old female with history of anxiety/depression, coronary artery disease presenting with intentional overdose. Patient ingested an undisclosed amount of NyQuil/DayQuil tablets around 1700 this evening. Denies coingestions or intake of alcohol. On physical exam patient is tachycardic and hypertensive. She is somnolent but arousable and able to answer questions and follow commands. Labs are significant for leukocytosis and elevated platelet count as well as microcytosis with normal hemoglobin and hematocrit Mild elevation of alkaline phosphatase = 121, UA suggestive of infection, urinary toxicology screen positive for opiates, fentanyl, amphetamine/methamphetamines, ecstasy and marijuana as well as an elevated ac etaminophen level of 94. #Suicidal gestureintentional overdose on NyQuil and DayQuil. These medications typically contain acetaminophen, dextromethorphan as well as doxylamine (antihistamine) and phenylephrine. Maintain suicide precautions, one-to-one observation Bladder scan and straight cath as needed, monitor for urinary retention given anticholinergic elements of her overdose Continue N-acetylcysteine per protocol Lactated Ringer's at 100 mL/h x 2 L Repeat CBC, LFTs in AM Psychiatry consulted, aprec recommendations #Urinary tract infectionUA suggestive of infection; patient asymptomatic. Patient is afebrile. Elevated heart rate likely secondary to overdose rather than sepsis. Abx d/c'd Continue gentle IV fluids #Coronary artery diseasepatient with history of coronary artery disease. She had LAD stent in 2014 in the setting of an acute [place]. She also had stenting of her ostial/proximal right PDA due to progressive dyspnea on exertion. Patient followed with cardiology in the past. Last visit 07/26/2020. At that time she was on dual antiplatelet therapy due to recent stent placement as well as beta- aneesh, KARL inhibitor, statin and Imdur for angina. Patient reports that she is not taking any of her medications. Patient denies chest pain. EKG is nonischemic. Troponin 85, 81 yesterday. Will resume aspirin 81 mg p.o. daily, atorvastatin 20 mg p.o. daily, carvedilol 3.125 mg p.o. twice daily and ramipril 2.5 mg p.o. twice daily #Anxietypatient may benefit from SSRI management, further evaluation for possible bipolar disorder as self-reported. Psychiatry consultation appreciated F/E/N -lactated Ringer's at 100 mL/h x 2 L, electrolytes within normal limits, heart healthy diet with safe tray as tolerated Prophylaxisencourage ambulation, low risk for DVT Codefull per discussion with patient at time of admission Dispoadmit to PCU Admission and Anticipated Discharge Date Admission Date: October 26, 2024 Supervising Physician Co-Signing Physician Notes I personally examined the patient and verified all traylor points of history and exam, discussed case, and agree with decision making with Dr Tavon Torres and Norma Caba MS4 feeling very tired. no real focal complaints vitals noted nad heent nc at mmm fatigued. breathing unlabored no accessory muscles good effort skin no rashes no pallor or icterus neuro no focal deficits polysubstance overdose - supportive care, NAC, time. anticipate inpatient psychiatric stay after OD has recovered/done with NAC given SI. otherwise as above Subjective Patient was seen at bedside. She was sleeping, but awakened to voice. She reported feeling tired. She had no acute complaints. Review of Systems Review of Systems: as per hPI Physical Exam Physical Exam: General: patient resting comfortably, initially sleeping Skin: warm, dry, intact, no rashes or lesions Heart: RRR Lungs: CTAB Abd: soft, NT/ND, no masses/organomegaly Ext: warm, 2+ pulses in UE/LE bilaterally, mild tenderness to palpation in BL ankles Results & Data Results & Data Vital Signs (Past 12 Hours) Vital Signs Temp Pulse Pulse Resp BP BP Pulse Ox 10/27/24 07:57 10/27/24 07:00 88 15 167/108 H 96 10/27/24 06:53 88 10/27/24 06:00 91 H 16 166/91 H 96 10/27/24 05:10 167/92 H 10/27/24 05:10 167/92 H 10/27/24 05:10 167/92 H 10/27/24 05:10 167/92 H 10/27/24 05:10 167/92 H 10/27/24 05:00 80 16 167/92 H 97 10/27/24 04:00 86 16 191/105 H 97 10/27/24 03:00 88 16 186/102 H 96 10/27/24 02:00 92 H 14 172/95 H 97 10/26/24 23:52 36.9 C 95 H 20 156/91 H 97 10/26/24 23:52 10/26/24 23:14 87 10/26/24 23:00 90 18 139/80 93 10/26/24 21:37 96 H 18 139/78 98 Pulse Ox O2 Del Method O2 Del Method 10/27/24 07:57 Room Air 10/27/24 07:00 Room Air 10/27/24 06:53 10/27/24 06:00 Room Air 10/27/24 05:10 10/27/24 05:10 10/27/24 05:10 10/27/24 05:10 10/27/24 05:10 10/27/24 05:00 Room Air 10/27/24 04:00 Room Air 10/27/24 03:00 Room Air 10/27/24 02:00 Room Air 10/26/24 23:52 Room Air 10/26/24 23:52 97 Room Air 10/26/24 23:14 10/26/24 23:00 Room Air 10/26/24 21:37 Room Air Resident Activity Tracking Resident Involvement: Resident Care Provided Care Provided: Adult Hospital Medicine
--- NOTE | 2024-10-27 13:04 | Billing Data ---
Date of Service October 27, 2024 Coding Level of Care Code 86255 SUB INP/OBS CARE MIN
--- NOTE | 2024-10-27 14:16 | Electrocardiogram Report ---
Test Reason : Blood Pressure : */* mmHG Vent. Rate : 98 BPM Atrial Rate : 98 BPM P-R Int : 136 ms QRS Dur : 80 ms QT Int : 380 ms P-R-T Axes : 70 68 68 degrees QTcB Int : 485 ms Normal sinus rhythm Possible Left atrial enlargement Nonspecific ST abnormality Prolonged QT Abnormal ECG When compared with ECG of 04-Mar-2017 19:21, QT has lengthened Confirmed by Chris Kong ([id number]) on 10/27/2024 2:16:24 PM Referred By: REFERRED SELF Confirmed By: Chris Kong
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
[2024-10-27 17:40] LABS: Albumin Level 3.7 gm/dl (3.4-5.0); Bilirubin Direct 0.1 mg/dl (0-0.2); Bilirubin,Total 0.3 mg/dl (0.2-1.0); Total Protein 6.6 gm/dl (6.0-8.3)
[2024-10-27 17:50] LABS: Prothrombin Time 11.1 Seconds (9.0-12.0)
[2024-10-27] MEDS: cefTRIAXone SODIUM 1,000 MG/50 ML BAG IV SCH (19:58)
[2024-10-28 07:19] LABS: Basophils # (auto) 0.04 K/uL (0.00-0.20); Basophils % (auto) 0.3 %; Eosinophils # (auto) 0.35 K/uL (0.00-0.50); Eosinophils % (auto) 2.7 %; Hematocrit (blood only) 37.5 % (37.0-47.0); Hemoglobin 11.6 g/dl (12.0-16.0); Immature Granulocytes # (auto) 0.05 K/uL (0.01-0.20); Immature Granulocytes % (auto) 0.4 %; Lymphocytes # (auto) 4.37 K/uL (1.20-3.40); Lymphocytes % (auto) 33.3 %; Mean Corpuscular Hemoglobin 22.6 pg (25.0-34.0); Mean Corpuscular Hgb Conc 30.9 g/dL (32.0-36.0); Mean Corpuscular Volume 73.1 fL (80.0-100.0); Mean Platelet Volume 11.2 fL (9.4-12.4); Monocytes # (auto) 0.99 K/uL (0.11-0.59); Monocytes % (auto) 7.5 %; Neutrophils # (auto) 7.34 K/uL (1.40-6.50); Neutrophils % (auto) 55.8 %; Platelet Count 412 K/uL (130-400); RDW Coefficient of Variation 16.5 % (11.5-14.5); RDW Standard Deviation 43.3 fL (36.4-46.3); Red Blood Count 5.13 M/uL (4.20-5.40); White Blood Count 13.14 K/ul (4.8-10.8)
[2024-10-28 07:39] VITALS: TEMP 98.4; O2SAT 97
[2024-10-28 07:42] LABS: Albumin Globulin Ratio 1.2 (0.9-2); Albumin Level 3.8 gm/dl (3.4-5.0); Bilirubin,Total 0.4 mg/dl (0.2-1.0); Calcium 8.7 mg/dl (8.6-10.3); Creatinine Clr Calc Pharmacy 119.4 ml/min; Globulin 3.2 gm/dl (2.5-4.0); Potassium 3.6 mmol/L (3.5-5.1)
[2024-10-28 07:48] LABS: Prothrombin Time 10.9 Seconds (9.0-12.0)
--- NOTE | 2024-10-28 09:24 | Hospitalist Progress Note ---
Date of Service October 28, 2024 Assessment & Plan (1) Suicide gesture: (2) Urinary tract infection: (3) Coronary artery disease: (4) Anxiety: Plan 44-year-old female with history of anxiety/depression, coronary artery disease presenting with intentional overdose. Patient ingested an undisclosed amount of NyQuil/DayQuil tablets around 1700 yesterday evening. Denies coingestions or intake of alcohol.Urinary toxicology screen also positive for opiates, fentanyl, amphetamine/methamphetamines, ecstasy and marijuana as well as an elevated acetaminophen level of 94. #Suicidal gestureintentional overdose on NyQuil and DayQuil. These medications typically contain acetaminophen, dextromethorphan as well as doxylamine (antihistamine) and phenylephrine. Admit to PCU for continuous cardiac monitoring Maintain suicide precautions, one-to-one observation Bladder scan and straight cath as needed, monitor for urinary retention given anticholinergic elements of her overdose Continue N-acetylcysteine per protocol Lactated Ringer's at 100 mL/h x 2 L Repeat CBC, LFTs and Tylenol level in the morning Psychiatry consult, Pursuing 302 involuntary commitment, transfer to inpatient psychiatry after medical clearance Will wait to start psychotropics Continue bedside sitter For behavioral emergency: Olanzapine 5mg PO/IM Q6hr PRN for agitation #Coronary artery diseasepatient with history of coronary artery disease. She had LAD stent in 2014 in the setting of an acute [facility]. She also had stenting of her ostial/proximal right PDA due to progressive dyspnea on exertion. Patient followed with cardiology in the past. Last visit 07/26/2020. At that time she was on dual antiplatelet therapy due to recent stent placement as well as beta- aneesh, KARL inhibitor, statin and Imdur for angina. Patient reports that she is not taking any of her medications. Patient denies chest pain. EKG is nonischemic. Troponin 85, 81 yesterday. Will resume aspirin 81 mg p.o. daily, atorvastatin 20 mg p.o. daily, carvedilol 3.125 mg p.o. twice daily and ramipril 2.5 mg p.o. twice daily #Anxiety To be managed by psychiatry during inpatient stay F/E/N -lactated Ringer's at 100 mL/h x 2 L, electrolytes within normal limits, heart healthy diet with safe tray as tolerated Prophylaxisencourage ambulation, low risk for DVT Codefull per discussion with patient at time of admission Dispoadmit to PCU Admission and Anticipated Discharge Date Admission Date: October 26, 2024 Subjective Patient was seen at bedside. She was sleeping, but awakened to voice. She reported alternating between feeling cold and sweaty, feeling tired, and having a migraine, which is not new for her. Physical Exam Physical Exam: General: patient resting comfortably, initially sleeping Skin: warm, dry, intact, no rashes or lesions MSK: all extremities with full range of motion Neuro: no extremity weakness Psych: speaking in full sentences, fatigued Results & Data Results & Data Vital Signs (Past 12 Hours) Vital Signs Temp Pulse Pulse Resp BP Pulse Ox O2 Del Method 10/28/24 07:41 Room Air 10/28/24 07:38 36.9 C 90 17 134/69 97 Room Air 10/28/24 03:44 36.8 C 85 19 134/77 96 Room Air 10/27/24 23:29 37.1 C 88 18 131/75 97 Room Air 10/27/24 21:54 93 H
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
[2024-10-28 11:21] VITALS: PULSE 88; RESP 19
[2024-10-28 11:28] VITALS: BP 132/70
--- NOTE | 2024-10-28 12:21 | Billing Data ---
Date of Service October 28, 2024 Coding Level of Care Code 78053 IN/OBS DISCH 30 MIN/LESS
== END 2024-10-28 12:35 | DRG 918 ==
LOC: ED 19:47 → SUATTDRO 22:25 → EDINP 22:25 → 2S 10-27 07:26

== ENCOUNTER 2024-10-28 11:19 | Inpatient (IN) ==
[2024-10-28] MEDS ORDERED: BISMUTH SUBSALICYLATE 262 MG CHEW PO PRN (13:32)
[2024-10-28] MEDS ORDERED: ALUMINUM/MAGNESIUM SUSP 30 ML UDC PO PRN (13:32)
[2024-10-28] MEDS ORDERED: SODIUM CHLORIDE 0.65% NA SOLN 45 ML (OCEAN) PRN (13:32)
[2024-10-28] MEDS ORDERED: MAGNESIUM HYDROXIDE SUSP 30 ML UDC PO PRN (13:32)
[2024-10-28] MEDS ORDERED: ACETAMINOPHEN 325 MG TAB PO PRN (13:58)
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
[2024-10-28] MEDS: hydrOXYzine HCl 25 MG TAB PO PRN ×2 (15:08→20:53)
[2024-10-28] MEDS: NICOTINE 21 MG/24 HR TDSY TD SCH (16:14)
[2024-10-28 20:39] VITALS: O2SAT 98
[2024-10-28] MEDS: INFLUENZA VACC TS2024-25(6m+)/PF (IIV3) 0.5mL Syr IM ONE (20:52)
[2024-10-28] MEDS: ENALAPRIL MALEATE 5 MG TAB PO SCH (20:53)
[2024-10-28] MEDS: carvediloL 3.125 MG TAB PO SCH (20:53)
[2024-10-29] MEDS: IBUPROFEN 200 MG TAB PO PRN (04:04)
[2024-10-29 06:44] VITALS: RESP 16
[2024-10-29] MEDS: ASPIRIN 81 MG ECTAB PO SCH (09:00)
[2024-10-29] MEDS: ATORVASTATIN 20 MG TAB PO SCH (09:00)
[2024-10-29] MEDS: ARIPiprazole 5 MG TAB PO SCH (09:50)
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
[2024-10-29] MEDS: NICOTINE POLACRILEX 2 MG GUM MT PRN (16:15)
[2024-10-30 06:24] VITALS: TEMP 98.6
[2024-10-30 08:35] LABS: Chol HDL Ratio 4.2 (0-5)
[2024-10-30 09:21] LABS: Estimated Average Glucose 143 mg/dl; Hemoglobin A1C 6.6 % (4.5-5.6)
[2024-10-30 13:21] VITALS: BP 130/84; PULSE 89
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
== END 2024-10-30 15:55 | disposition home or self-care (01) | DRG 883 ==
LOC: 3S 11:34